=== PATIENT | male | born 1980 | race Caucasian/White ===

== ENCOUNTER 2020-05-30 15:35 | Emergency (ER) | payer MEDICARE, SELFPAY ==
--- NOTE | ~2020-05-30 | XR_ITS ---
EXAMINATION: XR hand RT min 3V EXAM DATE: 05/30/2020 16:09 INDICATION: Initial encounter following injury, with pain of the right hand. Smashed. TECHNIQUE: Right hand frontal, lateral and oblique projections obtained and reviewed. There is no pr ior study for comparison. FINDINGS: Right metacarpal bones are unremarkable. There are no acute fractures or dislocations iden tified. There is no subcutaneous gas. The soft tissue is unremarkable. There are no radiopaque fo reign bodies. IMPRESSION: 1. XR hand RT min 3V exam without acute osseous findings. Reviewed, dictated and finalized at location B.
[2020-05-30 15:50] VITALS: BP 122/77; PULSE 90; RESP 14; TEMP 36.8; O2SAT 98
--- NOTE | 2020-05-30 16:00 | ED.UPPEXIN ---
HPI - Extremity Injury (Upper) General Chief Complaint: Extremity Injury, Upper Stated Complaint: smashed hand Source: patient Mode of arrival: ambulatory Limitations: no limitations History of Present Illness HPI narrative: 39-year-old man comes in today complaining of pain and swelling of his right index and long fingers. Patient states he was helping a friend and some house construction fell on his hand. he denies numbness and tingling about every states he has decreased range of motion of the affected fingers as well as a laceration on the index finger. He does not recall his last tetanus shot. This happened within the last hour. complaint: injury to: right, hand and finger Other Extremity Injury: Right: fingers and hand Other injuries: none Handedness: right Place: other Severity: moderate Relieving factors: rest Exacerbating factors: movement of extremity and other ( palpation) Context: crush Treatments prior to arrival: bandage Related Data Home Medications Medication Instructions Recorded Confirmed divalproex [Depakote] 500 mg PO Q12H 05/30/20 05/30/20 insulin NPH and regular human 28 unit SUBCUT BID 05/30/20 05/30/20 [Novolin 70/30 U-100 Insulin] trazodone 150 mg PO PRN 05/30/20 05/30/20 Allergies Allergy/AdvReac Type Severity Reaction Status Date / Time No Known Allergies Allergy Verified 05/30/20 16:21 Review of Systems Integumentary/Breasts: Skin/Breast: Denies pruritus, Denies erythema and Denies rash Neurologic: Denies vertigo, Denies dizziness and Denies syncope Allergic/Immunologic: Allergic/Immunologic: Denies lip swelling and Denies tongue swelling PMFSH Past Medical History Medical History Bipolar disorder T1DM (type 1 diabetes mellitus) Social History Social History Smoking status: Current every day smoker Alcohol intake: current Alcohol use details: occasional Living arrangements: with family Exam Const: General: healthy appearing and alert Orientation/consciousness: patient oriented x3 Limitations: no limitations Other: mild acute distress HENMT: General nose exam: Normal nares present Face and sinus: normal facial exam Eyes: Conjunctivae: conjunctivae normal Pupils: Equal, round and reactive pupils present EOM: EOMs intact bilaterally Skin: General skin exam: normal color, no jaundice and no pallor Rashes: no rashes Other: 1 cm superficial avulsion on the radial aspect of the right index finger. There is tenderness over the phalanges of the 2nd and 3rd fingers with only slight decreased range of motion at the PIP and D IP. There is no tenderness over the metacarpals, carpals, thumb or lateral fingers. Neuro: General: patient oriented x3, moves all extremities, no focal motor deficits and CN's II-XI intact bilaterally Speech: normal speech Gait exam (Neuro): Normal gait present Other: Distal neurovascular exam is intact. Extrem: General: normal to inspection and no clubbing, cyanosis or edema Psych: Appearance: grossly normal and well kempt Mental Status: mental status grossly normal Affect: normal affect Attitude: cooperative Thought content: Yes Normal thought content present Course Vital Signs Vital signs: Vital Signs Temperature 36.8 C 05/30/20 15:50 Pulse Rate 90 05/30/20 15:50 Respiratory Rate 14 05/30/20 15:50 Blood Pressure 122/77 05/30/20 15:50 Pulse Oximetry 98 05/30/20 15:50 Temperature 36.8 C 05/30/20 15:50 Pulse Rate 90 05/30/20 15:50 Respiratory Rate 14 05/30/20 15:50 Blood Pressure 122/77 05/30/20 15:50 Pulse Oximetry 98 05/30/20 15:50 MDM - Extremity Injury (Upper) Differential Diagnosis Differential diagnosis: Likely finger sprain, fracture of hand and other ( finger contusion) Imaging Data Radiologist's impression: ITS Impressions Hand X-Ray 05/30/20 16:15 I
[2020-05-30] MEDS: TETANUS,DIPHTHERIA,AC PERTUSSIS ADULT 0.5 ML (ADACEL) IM (16:30)
--- NOTE | 2020-05-30 16:31 | PC.NURSE ---
WOUND CLEANED AND BANDAID APPLIED
[2020-05-30] MEDS: IBUPROFEN 400 MG TABLET 800 MG PO (17:03)
[2020-05-30 17:06] VITALS: RESP 15; O2SAT 100
== END 2020-05-30 17:05 | disposition home or self-care (01) ==
PROVIDERS: Emergency Provider Emergency Medicine; PCP Physician Assistant
DX: S61.210A Laceration without foreign body of right index finger without damage to nail, initial encounter (principal); S60.00XA Contusion of unspecified finger without damage to nail, initial encounter; W22.8XXA Striking against or struck by other objects, initial encounter; F17.200 Nicotine dependence, unspecified, uncomplicated
CPT/HCPCS: 73130; 90471; 90715; 99283; A9270

== ENCOUNTER 2021-12-11 20:41 | Emergency (ER) | payer MEDICARE, MEDICAID, SELFPAY ==
--- NOTE | ~2021-12-11 | XR_ITS ---
EXAMINATION: XR chest 1V portable EXAM DATE: 12/12/2021 01:04 INDICATION: Respiratory distress. TECHNIQUE: Portable AP frontal chest x-ray was obtained. Comparison is made to prior examination from 12/11/2021. FINDINGS: No confluent consolidation, pneumothorax or pleural effusion suspected. Cardiomediastinal s ilhouette is normal. There are no osseous abnormalities identified. There is an IV like foreign body projecting over the left upper quadrant, finding indicated. IMPRESSION: 1. No confluent consolidation. 2. IV-like foreign body projecting over left upper quadrant. Reviewed, dictated and finalized at location A.
--- NOTE | ~2021-12-11 | CT_ITS ---
EXAMINATION: CT brain wo con DATE: 12/11/2021 22:38 INDICATION: AMS. drug OD. weakness. unresponsive TECHNIQUE: Computed tomography (CT) of the head was performed without intravenous contrast. The mA wa s adjusted according to patient size. Iterative reconstruction technique was employed. The dose-lengt h product was 681.00 mGy-cm. COMPARISON: None FINDINGS: No acute intracranial hemorrhage or extra-axial fluid collection. No hydrocephalus, mass, or herniation. No acute ischemic infarct. Unremarkable dural venous sinus attenuation. No acute osseous abnormality. The aerated spaces are clear. Hyperdense material fills the left lobe. The left lens is not identified. IMPRESSION: No acute intracranial process. Possible vitreous hemorrhage and lens dislocation in the left lobe. Al ternatively, if there are no clinical findings of recent ocular trauma, this may represent postoperat shar change from silicone oil injection. Reviewed, dictated and finalized at [facility] K. IMPRESSION: No acute intracranial process. Possible vitreous hemorrhage and lens dislocatio n in the left lobe. Alternatively, if there are no clinical findings of recent ocular trauma, this may represent postoperative change from silicone oil inject ion.
--- NOTE | ~2021-12-11 | XR_ITS ---
EXAMINATION: XR chest 1V portable Exam Date/Time: 12/11/2021 21:42 CDT CLINICAL HISTORY: OD, weakness, AMS Comparison: None available. RESULT: Lines, tubes, and devices: A peripheral IV catheter projects over the left upper quadrant, presumabl y external to the patient. Lungs and pleura: Hazy subsegmental opacities in the right upper and right midlung. Cardiomediastinal silhouette: Normal cardiomediastinal silhouette. Other: No acute osseous or upper abdominal finding. IMPRESSION: Subtle pulmonary opacities may reflect atelectasis, infection, or aspiration. Reviewed, dictated and finalized at location K.
--- NOTE | ~2021-12-11 | CT_ITS ---
EXAMINATION: CT diagnostic chest wo con DATE: 12/11/2021 22:38 INDICATION: Altered mental status. Drug overdose. Weakness. Unresponsive. Pulmonary opacities in prio r x-ray. TECHNIQUE: Computed tomography (CT) of the chest was performed without intravenous contrast. Automate d exposure control and iterative reconstruction technique were employed. The dose-length product was 681.00 mGy-cm. COMPARISON: X-ray chest, same date. FINDINGS: Exam limited by significant respiratory motion artifact. Thoracic aorta: Normal. Lung parenchyma and airways: Scattered, mild centrilobular groundglass and tree-in-bud opacities in t he right lower lobe. Calcified right lower lobe granuloma. Thoracic inlet, axillae and chest wall: Unremarkable. Mediastinum: Normal. Heart and pericardium: Normal. Coronary artery calcifications: Absent. Pleura: No mass. No fluid. Upper abdomen: No significant finding. Bones: Unremarkable. IMPRESSION: Motion limited examination. Mild aspiration is suspected in the right lower lobe. Early infection is not excluded. Reviewed, dictated and finalized at location K. IMPRESSION: Motion limited examination. Mild aspiration is suspected in the right lower lob e. Early infection is not excluded.
--- NOTE | ~2021-12-11 | XR_ITS ---
EXAMINATION: XR chest 1V portable EXAM DATE: 12/12/2021 02:39 INDICATION: Endotracheal tube placement. TECHNIQUE: Portable AP frontal chest x-ray was obtained. Comparison is made to prior examination from 12/12/2021. FINDINGS: Endotracheal tube tip is 3 centimeters above the eugenia. There is a nasogastric tube seen w ith tip collimated off the study, but below the left hemidiaphragm. The lungs are clear. There are no pleural effusions. Cardiac silhouette is prominent but magnified on this AP technique. There is no pneumothorax suspected. The bones and soft tissues are unremarka ble. IMPRESSION: 1. Tubes in position. 2. No acute cardiopulmonary findings. Reviewed, dictated and finalized at location A.
--- NOTE | 2021-12-11 20:49 | ECG_ITS ---
Measurements Intervals [place] Rate: 87 P: 75 OR: 209 QRS: 61 QRSD: 99 T: 74 QT: 374 QTc: 451 Interpretive Statements SINUS RHYTHM WANDERING BASELINE ARTIFACT NONSPECIFIC ST ABNORMALITY BORDERLINE ECG NO PREVIOUS ECG AVAILABLE FOR COMPARISON Electronically Signed On 12-12-2021 14:56:10 CDT by Ward Betancourt M.D.
[2021-12-11 21:47] LABS: Base Excess ABG -30.6 mmol/L (0-2); HCO3 ABG 2.3 mmol/L (23-29); Oxygen Content ABG 19.2 %vol (16.0-22.0); Oxygen Saturation ABG 98.6 % (95-97); Oxyhemoglobin 97.6 % (94-100); PO2 ABG 249.7 mmHg (80-90); Total Hemoglobin 13.6 g/dL (12.0-18.0)
[2021-12-11 21:54] LABS: Hematocrit 43.6 % (40.0-54.0); Hemoglobin 12.7 g/dL (14.0-18.0); Immature Platelet Fraction Pct 1.3 % (1.0-7.0); Mean Corpuscular HGB Conc 29.1 g/dL (32.0-36.0); Mean Corpuscular Hemoglobin 29.6 pg (27.0-31.0); Mean Corpuscular Volume 101.6 fL (78.0-102.0); Mean Platelet Volume 10.2 fl (8.7-11.0); Platelet Count Result 484 K/mm3 (150-420); Red Blood Count 4.29 M/mm3 (4.70-6.10); Red Cell Distribution Width 12.7 % (11.6-14.4)
[2021-12-11 21:55] LABS: Appearance Urine Clear (Clear); Bilirubin Urine Negative (Negative); Color Urine Light Yellow (Yellow); Glucose Urine UA 3+ (Negative); Ketones Urine 2+ (Negative); Leukocyte Esterase Ur Negative (Negative); Nitrate Urine Negative (Negative); Protein Urine Negative (Negative); Specific Grav Ur >= 1.030 (1.010-1.020); Urobilinogen Urine 0.2 mg/dL (0.2-1.0)
[2021-12-11 22:00] LABS: PCO2 ABG 13.8 mmHg (35-45); pH ABG 6.84 (7.35-7.45)
[2021-12-11 22:01] LABS: Device SIMPLE MASK; Modified Allen's Test Pass; Site Drawn LEFT FEMORAL
[2021-12-11 22:02] LABS: Amphetamine Screen Urine Positive (Negative); Barbiturate Screen Urine Negative (Negative); Benzodiazepines Screen Urine Negative (Negative); Cannabinoid Screen Urine Negative (Negative); Cocaine Screen Urine Negative (Negative); Methadone Screen Urine Negative (Negative); Opiate Screen Urine Negative (Negative); Phencyclidine Screen Urine Negative (Negative); White Blood Count 33.3 K/mm3 (4.8-10.8)
[2021-12-11 22:08] LABS: Add Urine Microscopic? YES; Bacteria Urine None seen /hpf; Blood Urine Trace-Intact (Negative); RBC Urine 0-2 /hpf (0-2); Squamous Epithelial Cell Urine None seen /hpf (Few); WBC Urine 0-3 /hpf (0-3)
[2021-12-11 22:11] LABS: Lactic Acid Reflex 10.7 mmol/L (0.4-2.0)
[2021-12-11 22:14] LABS: Alanine Aminotransferase 45 U/L (16-63); Albumin Level 3.1 g/dL (3.4-5.0); Alkaline Phosphatase 206 U/L (46-116); Aspartate Amino Transferase 26 U/L (15-37); Bilirubin,Total 0.4 mg/dL (0.00-1.00); Blood Urea Nitrogen 74 mg/dL (7-18); Calcium 8.5 mg/dL (8.5-10.1); Carbon Dioxide 5 mmol/L (21-32); Chloride 76 mmol/L (98-108); Estimated Glomerular Filt Rate 20; Potassium 5.7 mmol/L (3.5-5.1); Sodium 124 mmol/L (136-145); Total Protein 6.8 g/dL (6.4-8.2)
[2021-12-11 22:31] LABS: Ethanol < 3 mg/dL (0-6); Glucose > 800 mg/dL (70-99); Osmolality Calculated 319 mOsm/kg (285-295); Troponin I 239.4 ng/L (0.00-60.4)
[2021-12-11 23:24] LABS: Band Neutrophils Percent 0 % (0-6); Basophils Percent Manual 0 % (0-1); Eosinophils Percent Manual 0 % (1-6); Lymphocytes Absolute Manual 1.99 K/mm3 (1.1-4.5); Lymphocytes Percent Manual 6 % (18-44); Metamyelocytes Percent 2 %; Monocytes Absolute Manual 1.99 K/mm3 (0.1-0.90); Monocytes Percent Manual 6 % (3-9); Neutrophils Absolute Manual 28.63 K/mm3 (1.3-6.7); Neutrophils Percent Manual 86 % (46-73); Platelet Estimate Increased (Adequate)
[2021-12-11 23:29] LABS: SARS-CoV-2 Ag Negative (Negative)
--- NOTE | 2021-12-11 23:36 | ECG_ITS ---
Measurements Intervals [place] Rate: 88 P: 73 WV: 173 QRS: 33 QRSD: 185 T: 70 QT: 428 QTc: 518 Interpretive Statements SINUS RHYTHM WITH OCCASIONAL VENTRICULAR PREMATURE COMPLEXES INDETERMINATE AXIS RIGHT BUNDLE BRANCH BLOCK [120+ ms QRS DURATION, UPRIGHT V1, 40+ ms S IN I/aVL/V4/V5/V6] ST ABNORMALITY CONSIDER MYOCARDIAL ISCHEMIA INFEROLATERAL LEADS SEPTAL MYOCARDIAL INFARCTION , OF INDETERMINATE AGE [40+ ms Q WAVE IN V1/V2] ABNORMAL ECG COMPARED TO ECG 12/11/2021 21:53:27 RIGHT BUNDLE-BRANCH BLOCK NOW PRESENT Electronically Signed On 12-12-2021 14:57:39 CDT by Ward Betancourt M.D.
--- NOTE | 2021-12-11 23:40 | ED.NEUROSD ---
HPI - Neuro Symptoms/Deficit General Chief Complaint: Neuro Symptoms/Deficit Stated Complaint: AMB Time Seen by Provider: 12/11/21 20:43 Source: EMS and RN notes reviewed Mode of arrival: EMS Limitations: altered mental status and other (pt was very agitated and answered questions with grunts. he was sedated soon thereafter and did not converse in the ED.) History of Present Illness Onset (ago): hour(s) (2) History of same: No Severity: severe Relieving factors: none Exacerbating factors: none Context: sudden onset Related Data Home Medications Medication Instructions Recorded Confirmed divalproex [Depakote] 500 mg PO Q12H 05/30/20 12/12/21 insulin NPH and regular human 28 unit SUBCUT BID 05/30/20 12/12/21 [Novolin 70/30 U-100 Insulin] trazodone 150 mg PO PRN 05/30/20 12/12/21 Allergies Allergy/AdvReac Type Severity Reaction Status Date / Time No Known Allergies Allergy Verified 05/30/20 16:21 Review of Systems Review of Systems: All systems reviewed & are unremarkable except as noted in HPI and below PMFSH Past Medical History Medical History Altered mental status associated with intoxication Bipolar disorder T1DM (type 1 diabetes mellitus) Social History Social History Smoking status: Current every day smoker Alcohol intake: current Alcohol use details: occasional Exam Const: General: diaphoretic and ill appearing Nutritional Appearance: thin Orientation/consciousness: confusion Limitations: altered mental status Other: Pt did not converse HENMT: Ears: external ears normal, TM's normal bilaterally and EAC's normal General nose exam: Normal nares present Face and sinus: normal facial exam Mouth: Yes moist mucous membranes Eyes: Pupils: Equal, round and reactive pupils present Other: left eye vision-less Neck: Neck: normal visual inspection, no lymphadenopathy and no meningeal signs Chest: Chest palpation & inspection: normal inspection of the chest Resp: Effort & Inspection: labored, retractions and tachypneic Auscultation: crackles and rhonchi Cardio: Rate: regular rate Rhythm: regular rhythm GI: GI Palp: Yes Soft to palpation and No Tenderness to palpation present (GI) Auscultation: normal bowel sounds : General: Yes bladder normal to palpation and Yes no CVA tenderness Male General Exam: Yes normal external exam Back/Spine/Pelvis: Back: no CVA tenderness Skin: General skin exam: normal color Rashes: no rashes Neuro: General: moves all extremities, no meningeal signs, no focal motor deficits and CN's II-XI intact bilaterally Extrem: General: no pedal edema Psych: Appearance: disheveled Course Course Emergency Course: Pt was sedated and eventually intubated, placed on the ventilator and transferred to [facility] [place]. Reevaluation(s) Date: 12/11/21 Time: 21:41 Vital Signs Vital signs: Vital Signs Temperature 36.6 C 12/12/21 03:29 Pulse Rate 88 12/12/21 03:29 Blood Pressure 104/60 12/12/21 03:29 Pulse Oximetry 100 12/12/21 03:29 Temperature 36.6 C 12/12/21 03:29 Pulse Rate 88 12/12/21 03:29 Blood Pressure 104/60 12/12/21 03:29 Pulse Oximetry 100 12/12/21 03:29 MDM - Neuro Symptoms/Deficit Differential Diagnosis Differential diagnosis: Likely convulsions, delirium, cerebrovascular accident and transient cerebral ischemia Medical Records Attestation: I reviewed the patient's medical records. Lab Data Attestation: I reviewed the patient's lab results. Result diagrams: 12/11/21 21:46 12/11/21 21:46 Labs: Lab Results 12/11/21 12/11/21 12/11/21 Range/Units 21:46 21:46 21:46 WBC 33.3 H* (4.8-10.8) K/mm3 RBC 4.29 L (4.70-6.10) M/mm3 Hgb 12.7 L (14.0-18.0) g/dL Hct 43.6 (40.0-54.0) % MCV 101.6 (78.0-102.0) fL [facility]
[2021-12-11 23:51] LABS: Reflex Lactic Acid Yes or No Add Lactic
[2021-12-11 23:56] LABS: Base Excess ABG -29.4 mmol/L (0-2); HCO3 ABG 3.1 mmol/L (23-29); Oxygen Saturation ABG 85.2 % (95-97); Oxyhemoglobin 84.4 % (94-100); PO2 ABG 76.4 mmHg (80-90); Total Hemoglobin 13.4 g/dL (12.0-18.0)
[2021-12-11 23:58] LABS: Device SIMPLE MASK; Modified Allen's Test Pass; PCO2 ABG 17.5 mmHg (35-45); Site Drawn RIGHT BRACHIAL; pH ABG 6.86 (7.35-7.45)
[2021-12-12 00:14] LABS: Lactic Acid 8.2 mmol/L (0.4-2.0)
[2021-12-12 01:22] LABS: Base Excess ABG -26.2 mmol/L (0-2); HCO3 ABG 7.3 mmol/L (23-29); Oxygen Content ABG 20.8 %vol (16.0-22.0); Oxygen Saturation ABG 99.6 % (95-97); Oxyhemoglobin 98.6 % (94-100); Total Hemoglobin 13.8 g/dL (12.0-18.0)
[2021-12-12 01:25] LABS: Modified Allen's Test Pass; PO2 ABG 598.1 mmHg (80-90); Site Drawn RIGHT RADIAL; pH ABG 6.86 (7.35-7.45)
[2021-12-12 01:26] LABS: Device AMBU BAG
--- NOTE | 2021-12-12 01:36 | PC.NURSE ---
0000 asked family to step out while intubated 0105 [facility]parents stated we will sign if not respondsible for his bills, he lives with grandmother and she takes care of him. 0130 at desk screaming they should be with son, and not in waiting room.
--- NOTE | 2021-12-12 01:58 | PC.NURSE ---
0112 Dr Bowman at [facility] will not accept, states must have calcium & vanco before will accept. 0118 Called Sebastien no ICU beds
[2021-12-12 02:10] VITALS: PULSE 108; O2SAT 100
[2021-12-12 02:40] LABS: HCO3 ABG 8.1 mmol/L (23-29); Oxygen Content ABG 16.6 %vol (16.0-22.0); Oxygen Saturation ABG 95.7 % (95-97); PCO2 ABG 37.1 mmHg (35-45); PO2 ABG 106.7 mmHg (80-90); Total Hemoglobin 12.3 g/dL (12.0-18.0)
[2021-12-12 02:45] LABS: Device VENTILATOR; Modified Allen's Test Pass; Site Drawn RIGHT RADIAL; pH ABG 6.96 (7.35-7.45)
[2021-12-12 03:05] VITALS: PULSE 98; O2SAT 96
[2021-12-12 03:29] VITALS: BP 104/60; PULSE 88; TEMP 36.6; O2SAT 100
--- NOTE | 2021-12-12 03:43 | PC.NURSE ---
called mother gave room number at [facility]
== END 2021-12-12 03:41 | disposition short-term general hospital (02) ==
PROVIDERS: Emergency Provider Emergency Medicine; PCP Physician Assistant
DX: R41.82 Altered mental status, unspecified (principal); E10.9 Type 1 diabetes mellitus without complications; G45.9 Transient cerebral ischemic attack, unspecified; E10.10 Type 1 diabetes mellitus with ketoacidosis without coma; Z79.4 Long term (current) use of insulin; I95.9 Hypotension, unspecified; A41.9 Sepsis, unspecified organism; Z20.822 Contact with and (suspected) exposure to COVID-19; Z79.899 Other long term (current) drug therapy
CPT/HCPCS: 31500; 36415; 36600; 70450; 71045; 71250; 80053; 80307; 81001; 82805; 83605; 84484; 85025; 85055; 87040; 87426; 93005; 94002; 99291; C9803; J0330; J0610; J2060; J2250; J2704; J3010; J3370